=== PATIENT | male | born 1965 | race African-American/Black ===

== ENCOUNTER 2016-06-01 14:19 | Outpatient (CLI) | payer MEDICARE, OTHER ==
[2016-06-01 14:56] LABS: Anion Gap 14 mmol/L (10-20); BUN (Urea Nitrogen) 23 mg/dL (8.9-20.6); Calc. Creatinine Clearance 0 mL/min (70-130); Carbon Dioxide 26 mmol/L (22-29); Chloride 102 mmol/L (98-107); Estimated GFR-MDRD 69; Glucose 116 mg/dL (70-105); Hemoglobin A1c 8.4 % (4.0-6.0); Potassium 4.4 mmol/L (3.5-5.1); Sodium 138 mmol/L (136-145)
[2016-06-01 15:00] LABS: #Basophils 0.2 thou/uL (0.0-0.2); #Eosinphils 0.4 thou/uL (0.0-0.7); #Lymphocytes 2.6 thou/uL (1.20-3.40); #Monocytes 0.4 thou/uL (0.11-0.59); #Neutrophils 3.8 thou/uL (1.40-6.50); %Basophils 2.9 % (0.0-1.0); %Eosinophils 5.9 % (0.0-10.0); %Lymphocytes 34.9 % (21.0-51.0); %Monocytes 5.5 % (0.0-10.0); %Neutrophils 50.7 % (42.0-75.0); Hemoglobin 13.2 g/dL (14.0-18.0); Mean Corpuscular HGB CONC 33.8 g/dL (32.0-36.0); Mean Corpuscular Hemoglobin 30.8 pg (27.0-31.0); Mean Platelet Volume 8.1 fL (7.4-10.4); Platelet Count 285 thou/uL (130-400); RBC Distribution Width 12.4 % (11.5-14.5); Red Blood Cell (RBC) Count 4.28 mill/uL (4.70-6.10); White Blood Cell (WBC) Count 7.5 thou/uL (4.8-10.8)
== END 2016-06-01 14:20 ==
LOC: MADLABBHPM 14:19
PROVIDERS: ATTEND Family Medicine
DX: E11.9 Type 2 diabetes mellitus without complications (principal); I10 Essential (primary) hypertension
CPT/HCPCS: 36415; 80048; 83036; 85025

== ENCOUNTER 2016-06-03 11:10 | Emergency (ER) | payer MEDICARE, OTHER ==
[2016-06-03] MEDS ORDERED: Fleet Enema 133 ML BOT ONE ×2 (11:32→11:40)
== END 2016-06-03 12:05 | disposition home or self-care (01) ==
LOC: MADERS 11:10
DX: K59.00 Constipation, unspecified (principal); I10 Essential (primary) hypertension; Z79.82 Long term (current) use of aspirin; Z79.84 Long term (current) use of oral hypoglycemic drugs; Z79.899 Other long term (current) drug therapy
CPT/HCPCS: 99283

== ENCOUNTER 2016-08-22 19:46 | Emergency (ER) | payer MEDICARE, MEDICAID ==
[2016-08-22] MEDS ORDERED: Adacel (T-DAP) 0.5 ML VIAL ONE (20:03)
[2016-08-22] MEDS ORDERED: Bacitracin Zinc 1 Packet ONE (20:06)
== END 2016-08-22 20:35 | disposition home or self-care (01) ==
LOC: MADERS 19:46
DX: S81.831A Puncture wound without foreign body, right lower leg, initial encounter (principal); I10 Essential (primary) hypertension; Z79.84 Long term (current) use of oral hypoglycemic drugs; Z79.899 Other long term (current) drug therapy; Z79.82 Long term (current) use of aspirin; X58.XXXA Exposure to other specified factors, initial encounter
CPT/HCPCS: 90471; 90715

== ENCOUNTER 2017-05-15 05:20 | Emergency (ER) | payer MEDICARE, OTHER | END 2017-05-15 06:38 | disposition home or self-care (01) | LOC: MADERS 05:20 | DX: F17.210 Nicotine dependence, cigarettes, uncomplicated (principal); I10 Essential (primary) hypertension | CPT/HCPCS: 36416; 93005 ==

== ENCOUNTER 2017-06-26 10:52 | Emergency (ER) | payer MEDICARE, MEDICAID ==
[2017-06-26] MEDS ORDERED: Clindamycin 150 MG CAP ONE (11:31)
[2017-06-26] MEDS ORDERED: Ciprofloxacin 500 MG TAB ONE (11:31)
== END 2017-06-26 11:55 | disposition home or self-care (01) ==
LOC: MADERS 10:52
DX: N49.2 Inflammatory disorders of scrotum (principal); I10 Essential (primary) hypertension; E11.9 Type 2 diabetes mellitus without complications; F17.210 Nicotine dependence, cigarettes, uncomplicated; Z79.899 Other long term (current) drug therapy; Z79.84 Long term (current) use of oral hypoglycemic drugs; Z79.82 Long term (current) use of aspirin
CPT/HCPCS: 87070; 87077; 87186; 87205; 99283

== ENCOUNTER 2017-11-02 01:16 | Emergency (ER) | payer MEDICARE, MEDICAID ==
[2017-11-02] MEDS ORDERED: Ondansetron ODT 4 MG TAB ONE (01:46)
== END 2017-11-02 02:11 | disposition home or self-care (01) ==
LOC: MADERS 01:16
DX: B34.9 Viral infection, unspecified (principal); R11.2 Nausea with vomiting, unspecified; I10 Essential (primary) hypertension; E11.9 Type 2 diabetes mellitus without complications; F17.210 Nicotine dependence, cigarettes, uncomplicated; Z79.899 Other long term (current) drug therapy; Z98.2 Presence of cerebrospinal fluid drainage device; Z79.84 Long term (current) use of oral hypoglycemic drugs
CPT/HCPCS: 36416; 99284; Q0162

== ENCOUNTER 2018-10-02 10:21 | Outpatient (CLI) | payer MEDICARE, MEDICAID ==
[2018-10-02 11:41] LABS: #Basophils 0.1 thou/uL (0.0-0.2); #Eosinphils 0.2 thou/uL (0.0-0.7); #Lymphocytes 1.8 thou/uL (1.20-3.40); #Monocytes 0.3 thou/uL (0.11-0.59); %Basophils 1.6 % (0.0-1.0); %Eosinophils 2.9 % (0.0-10.0); %Lymphocytes 34.1 % (21.0-51.0); %Monocytes 4.9 % (0.0-10.0); %Neutrophils 56.5 % (42.0-75.0); Hemoglobin 12.5 g/dL (14.0-18.0); Mean Corpuscular HGB CONC 32.4 g/dL (32.0-36.0); Mean Corpuscular Volume 92.5 fL (78.0-98.0); Platelet Count 336 thou/uL (130-400); RBC Distribution Width 12.6 % (11.5-14.5); Red Blood Cell (RBC) Count 4.16 mill/uL (4.70-6.10); White Blood Cell (WBC) Count 5.4 thou/uL (4.8-10.8)
[2018-10-02 11:46] LABS: Anion Gap 14 mmol/L (10-20); BUN (Urea Nitrogen) 12 mg/dL (8.4-25.7); Calc. Creatinine Clearance 0 mL/min (70-130); Calcium 9.4 mg/dL (7.8-10.44); Carbon Dioxide 26 mmol/L (22-29); Chloride 104 mmol/L (98-107); Estimated GFR-MDRD Greater than 90; Glucose 144 mg/dL (70-105); Potassium 3.7 mmol/L (3.5-5.1); Sodium 140 mmol/L (136-145)
[2018-10-02 12:31] LABS: Amphetamine Not Detected (NotDetected); Barbiturates Screen Not Detected (NotDetected); Benzodiazepine Screen Not Detected (NotDetected); Cocaine Metabolite Screen Not Detected (NotDetected); Methadone Not Detected (NotDetected); Methamphetamine Not Detected (NotDetected); Opiate Screen Not Detected (NotDetected); Oxycodone Screen Not Detected (NotDetected); Phencyclidine (PCP) Not Detected (NotDetected); THC/Cannabinoid Screen Not Detected (NotDetected); Tricyclic Screen Not Detected (NotDetected)
[2018-10-02 12:32] LABS: Medtox Control Line Valid? VALID (VALID)
[2018-10-02 17:12] LABS: Hemoglobin A1c 7.1 % (4.0-6.0)
[2018-10-02 17:40] LABS: Folate (Folic Acid) 7.7 ng/mL (7.0-31.4)
== END 2018-10-02 10:22 | disposition home or self-care (01) ==
LOC: MADLABBHPM 10:21
PROVIDERS: ATTEND Family Medicine
DX: E11.65 Type 2 diabetes mellitus with hyperglycemia (principal); R42 Dizziness and giddiness; Z79.899 Other long term (current) drug therapy
CPT/HCPCS: 36415; 80048; 80306; 82607; 82746; 83036; 84443; 85025

== ENCOUNTER 2019-09-20 08:22 | Emergency (ER) | payer MEDICARE, OTHER | END 2019-09-20 09:15 | disposition home or self-care (01) | LOC: MADERS 08:22 | DX: L02.215 Cutaneous abscess of perineum (principal); L73.9 Follicular disorder, unspecified; E78.5 Hyperlipidemia, unspecified; E78.00 Pure hypercholesterolemia, unspecified; I10 Essential (primary) hypertension; E11.9 Type 2 diabetes mellitus without complications; F17.210 Nicotine dependence, cigarettes, uncomplicated; Z79.82 Long term (current) use of aspirin; Z79.84 Long term (current) use of oral hypoglycemic drugs; Z79.899 Other long term (current) drug therapy | CPT/HCPCS: 99283 ==

== ENCOUNTER 2020-05-05 10:31 | Emergency (ER) | payer MEDICARE, OTHER | END 2020-05-05 11:15 | disposition home or self-care (01) | LOC: MADERS 10:31 | DX: K59.00 Constipation, unspecified (principal); E78.5 Hyperlipidemia, unspecified; E78.00 Pure hypercholesterolemia, unspecified; I10 Essential (primary) hypertension; E11.9 Type 2 diabetes mellitus without complications; F17.290 Nicotine dependence, other tobacco product, uncomplicated; Z86.73 Personal history of transient ischemic attack (TIA), and cerebral infarction without residual deficits; Z79.84 Long term (current) use of oral hypoglycemic drugs; Z79.899 Other long term (current) drug therapy; Z79.82 Long term (current) use of aspirin | CPT/HCPCS: 99283 ==

== ENCOUNTER 2020-11-08 11:53 | Outpatient (CLI) | payer MEDICARE, OTHER ==
[2020-11-08 17:23] LABS: Hemoglobin A1c 12.1 % (4.0-6.0)
== END 2020-11-08 11:54 | disposition home or self-care (01) ==
LOC: MADLAB 11:53
PROVIDERS: ATTEND Family Medicine
DX: E11.65 Type 2 diabetes mellitus with hyperglycemia (principal)
CPT/HCPCS: 36415; 83036

== ENCOUNTER 2021-11-06 01:17 | Emergency (ER) | payer OTHER | END 2021-11-06 02:09 | disposition home or self-care (01) | LOC: MADERS 01:17 | DX: R11.0 Nausea (principal); I10 Essential (primary) hypertension; E11.9 Type 2 diabetes mellitus without complications; E78.00 Pure hypercholesterolemia, unspecified; F17.210 Nicotine dependence, cigarettes, uncomplicated; Z86.73 Personal history of transient ischemic attack (TIA), and cerebral infarction without residual deficits; Z79.82 Long term (current) use of aspirin; Z79.84 Long term (current) use of oral hypoglycemic drugs; Z79.899 Other long term (current) drug therapy | CPT/HCPCS: 36416; 99283 ==

== ENCOUNTER 2023-04-08 12:58 | Emergency (ER) | payer OTHER, MEDICAID ==
[2023-04-08] MEDS ORDERED: Cefepime 2 GM VIAL ONE (15:33)
[2023-04-08] MEDS ORDERED: Vancomycin 1 GM VIAL ONE (15:33)
[2023-04-08] MEDS ORDERED: Sodium Chloride 0.9% 250 ML 250 ML ONE (15:33)
[2023-04-08] MEDS ORDERED: Sodium Chloride 0.9% 100 ML ONE (15:33)
[2023-04-08] MEDS ORDERED: Vancomycin HCl 500 MG VIAL ONE (15:39)
[2023-04-08 16:18] LABS: Hematocrit 34.3 % (42.0-52.0); Hemoglobin 11.2 g/dL (14.0-18.0); Mean Corpuscular HGB CONC 32.6 g/dL (32.0-36.0); Mean Corpuscular Hemoglobin 30.3 pg (27.0-31.0); Mean Platelet Volume 8.7 fL (7.4-10.4); Platelet Count 435 10x3/uL (130-400); RBC Distribution Width 13.7 % (11.5-14.5); Red Blood Cell (RBC) Count 3.69 mill/uL (4.70-6.10); White Blood Cell (WBC) Count 17.7 10x3/uL (4.8-10.8)
[2023-04-08 16:32] LABS: ALT (SGPT) 31 U/L (8-55); AST (SGOT) 24 U/L (5-34); Albumin 2.6 g/dL (3.5-5.0); Alkaline Phosphatase 79 U/L (40-110); Anion Gap 19 mmol/L (10-20); BUN (Urea Nitrogen) 21 mg/dL (8.4-25.7); Bilirubin, Total 0.5 mg/dL (0.2-1.2); Calc. Creatinine Clearance 0 mL/min (70-130); Calcium 8.8 mg/dL (7.8-10.44); Carbon Dioxide 32 mmol/L (22-29); Chloride 86 mmol/L (98-107); Estimated GFR 51; Globulin 5.3 g/dL (2.4-3.5); Protein, Total 7.9 g/dL (6.0-8.3); Sodium 133 mmol/L (136-145)
[2023-04-08 16:42] LABS: Critical Call Chemistry NUR.JP8; Glucose 557 mg/dL (70-105)
[2023-04-08 16:55] LABS: Band 4 % (5-11); Eosinophils 2 % (0-10); Lymphocytes 11 % (21-51); MDiff Complete? YES; Monocytes 6 % (0-10); Neutrophil 77 % (42-75); Platelet Adequacy Comment Appears Adequate
[2023-04-08 17:31] LABS: Bicarbonate (HCO3v) 39.3 mmol/L (22.0-28.0); CO2 Tension (PvCO2) 56.1 mmHg (42.0-51.0); Calcium, Ionized 1.09 mmol/L (1.15-1.33); Chloride 89 mmol/L (98-107); Hemoglobin - Calc 13.2 g/dL (14.0-18.0); Potassium 2.9 mmol/L (3.5-5.1); Sodium 136 mmol/L (138-145); vO2 Saturation-calc 78.7 % (60.0-85.0)
== END 2023-04-08 21:37 | disposition short-term general hospital (02) ==
LOC: MADERS 12:58
DX: M86.172 Other acute osteomyelitis, left ankle and foot (principal); I96 Gangrene, not elsewhere classified; I10 Essential (primary) hypertension; E11.9 Type 2 diabetes mellitus without complications; F17.290 Nicotine dependence, other tobacco product, uncomplicated
CPT/HCPCS: 80053; 82330; 82803; 83605; 85025; 86140; 87040; 96365; 96375; J0692; J3370; J3490; J7050